=== PATIENT | male | born 1980 | race Caucasian/White ===

== ENCOUNTER → 2020-11-20 09:33 | Outpatient (CLI) | payer OTHER, SELFPAY ==
[2020-11-20] MEDS: COVID-19 VACC #1, MRNA(MOD) 100 MCG/0.5 ML VIAL IM (09:41)
== END ==
PROVIDERS: Visit Provider Internal Medicine
DX: Z23 Encounter for immunization (principal)
CPT/HCPCS: 0011A; 91301

== ENCOUNTER → 2020-12-18 09:10 | Outpatient (CLI) | payer OTHER, SELFPAY ==
[2020-12-18] MEDS: COVID-19 VACC #2, MRNA(MOD) 100 MCG/0.5 ML VIAL IM (09:22)
== END ==
PROVIDERS: Visit Provider Internal Medicine
DX: Z23 Encounter for immunization (principal)
CPT/HCPCS: 0012A; 91301

== ENCOUNTER → 2023-07-07 12:05 | Outpatient (CLI) | payer OTHER, SELFPAY ==
[2023-07-07 12:30] LABS: Add Manual Diff / Slide Review NO; Basophils Absolute Auto 0 /uL (0-100); Basophils Percent Auto 0.6 % (0-2); Eosinophils Absolute Auto 100 /uL (0-450); Hematocrit 41.9 % (41-53); Hemoglobin 14.6 g/dL (13.5-17.5); Lymphocytes Absolute Auto 2400 /uL (1100-4500); Lymphocytes Percent Auto 40.9 % (25-40); Mean Corpuscular HGB Conc 34.9 % (30-36); Mean Corpuscular Hemoglobin 30.8 PG (26-34); Mean Corpuscular Volume 88.1 fL (80-100); Monocytes Absolute Auto 300 /uL (0-900); Monocytes Percent Auto 5.3 % (3-14); Neutrophils Absolute Auto 3100 /uL (1500-7000); Neutrophils Percent Auto 52.2 % (50-75); Platelet Count 281 X10^3/uL (150-400); Red Blood Cell Count 4.76 X10^6/uL (4.5-5.9); Red Cell Distribution Width 12.9 % (11.6-14.8); White Blood Cell Count 5.9 X10^3/uL (4.5-11.0)
[2023-07-07 12:44] LABS: Hemoglobin A1C% w Est Avg Glu 5.4 % (4.0-6.0)
[2023-07-07 13:24] LABS: Alanine Aminotransferase 15 IU/L (<50); Albumin 4.6 g/dL (3.5-5.0); Albumin Globulin Ratio 1.8 (1.0-2.8); Alkaline Phosphatase 59 U/L (38-126); Aspartate Aminotransferase 29 IU/L (17-59); BUN Creatinine Ratio 19.7 (6-22); Bilirubin Total 0.6 mg/dL (0.2-1.3); Blood Urea Nitrogen 14 mg/dL (9-20); Carbon Dioxide 29 mmol/L (22-32); Chloride 100 mmol/L (98-107); Cholesterol 198 mg/dL (140-199); Estimated Glomerular Filt Rate > 60 mL/min (>60); Globulin 2.6 g/dL (1.7-4.1); Glucose 102 mg/dL (70-100); HDL Cholesterol 57 mg/dL (40-60); HEMOLYSIS < 15 (0-50); LDL Cholesterol Calculated 124 mg/dL (<100); Potassium 4.9 mmol/L (3.4-5.1); Sodium 137 mmol/L (137-145); Total Protein 7.2 g/dL (6.3-8.2); Triglycerides 85 mg/dL (35-150)
[2023-07-07 13:54] LABS: Thyroid Stimulating Hormone 0.936 uIU/mL (0.47-4.68)
[2023-07-07 16:47] LABS: HIV 1 & 2 Ab/Ag 4th Gen Combo NEGATIVE (NEGATIVE); Hep C Virus Ab w/Reflex Quant NEGATIVE s/c (NEGATIVE)
== END ==
PROVIDERS: Family Provider Family Medicine; PCP Family Medicine; Referring Provider Family Medicine; Visit Provider Family Medicine
DX: Z00.00 Encounter for general adult medical examination without abnormal findings (principal)
CPT/HCPCS: 36415; 80053; 80061; 83036; 84443; 85025; 86803; 87389

== ENCOUNTER 2023-07-11 10:45 | Outpatient (RCR) | payer OTHER, SELFPAY ==
--- NOTE | 2023-06-30 17:39 | PT.OIE ---
Current Diagnoses Radiculopathy, site unspecified (06/30/23) Visit Care Team Role Provider Type Charlie Arellano MD Family Provider Physician Primary Care Provider Specialty: Family Practice Obstetrics Address: [address] [place] [address], [id number] Email: [email or web address] Sherly Recinos MD Attending Provider Physician Referring Provider Specialty: Family Practice Address: [address] [place] [address] [place], [address] Email: [email or web address] Physical Therapy Initial Evaluation PT-OP-A Visit Information Start: 06/17/23 19:06 Freq: Status: Active Protocol: Document 06/30/23 13:23 LRN (Rec: 06/30/23 16:12 LRN [id number]) Out-Patient Physical Therapy Visit Information Visit Information Visit Type Initial Evaluation Visit Start Time 13:23 Visit Stop Time 14:07 Total Visit Minutes 44 Visit Number Evaluation Information Evaluation Date 06/30/23 Precautions Precautions None PT-OP-B Current Condition Start: 06/17/23 19:06 Freq: Status: Active Protocol: Document 06/30/23 13:23 LRN (Rec: 06/30/23 16:12 LRN [id number]) Current Condition History of Current Condition Onset Date 2 months ago Current Complaints R LBP, R sciatic pain History of Current Condition Mild LBP onset when holding 11 month old son (on L side), he twisted a weird and had pain down his R side. The back issue went away, but later had pain in lateral R knee to ankle. He states the R foot and back of calf feels a little numbish. The pt has 2 sons, ages 11 months and 5 yo. He states he doesn't have to lift the 5 year old. Prior Treatments and Tests manager critical care unit 2x/week. Gabapentin and Meloxicam Future Testing and Treatments Planned manager critical care unit 2x/week. Developmental History Developmental History 10 yrs ago, thinks bad posture caused onset of R LBP, went to get out of bed and feel to ground due to pain; once up was able to walk, but pain returned after sitting. Current onset, back issue went away, but later pain in Lateral R knee to ankle. R foot and back of calf feels a little numbish. Hurts to walk. Works for [employer], so walking flat or incline at work (not up/down stairs) is painful. Treatment Goals Patient/Caregiver Goals Pt goals: to get pain under control: Able to walk on flat and incline without pain, to prepare for skiing, agreeable to HEP. Personal Factors Other Personal Factors That May Effect Works for [employer], Therapy/Recovery requiring walking flat and inclined surfaces. Has 11 month, almost 12 month old son that he carries, mostly on the L side. PT-OP-C Subjective Start: 06/17/23 19:06 Freq: Status: Active Protocol: Document 06/30/23 13:23 LRN (Rec: 06/30/23 16:12 LRN [id number]) Patient Questionnaires Oswestry Low Back Index Oswestry Score 16/100 Oswestry Impairment 1 to 19% Impaired (Score 1-19) OP-PT Pain Assessment Pain Assessment Grid Paper Pain Assessment Grid Completed Yes Location R LE Pain Location Details Posterior, anterior and lateral lower leg, & lateral foot. Intensity 6 Scale Used Numeric (0 - 10) Description Aching,Sharp,Shooting Description- Other Decreased sensation Frequency Constant Pain Aggravating Factors Activity,Standing,Sitting, Walking Low back Pain Location Details R LBP Intensity 6 Scale Used Numeric (0 - 10) Description Aching,Sharp,Shooting Description- Other Initially sharp, radiating, cramps in calf Frequency Constant Pain Aggravating Factors Standing,Walking PT-OP-H Neuro Start: 06/17/23 19:06 Freq: Status: Active Protocol: Document 06/30/23 13:23 LRN (Rec: 06/30/23 16:12 LRN [id number]) Sensation Evaluation Gross Sensation Gross Sensation Right LE Impaired Sensation Description Numbness Dermatome Impairments L3,L4,L5,S1,S2 Deep Tendon Reflex & Clonus Assessment Deep Tendon Reflex Bilateral Achilles Deep Tendon Reflex 2+ Normal Right Patellar Deep Tendon Reflex 3+ Normal But Brisk Left Patellar Deep Tendon Reflex 2+ Normal PT-OP-J Posture/Palpation/Skin Start: 06/17/23 19:06 Freq: Status: Active Protocol: Document 06/30/23 13:23 LRN (Rec: 06/30/23 16:12 LRN [id number]) Posture Evaluation Position Standing Head/C-Spine Posture Side Bent Left,Forward Head L-Spine Posture Decreased Lordosis,Shifted Left Shoulder Posture (L) Elevated Pelvis Posture Posterior Tilted Weight Distribution Balanced Hip Posture (L) Externally Rotated Ankle/Foot Posture (L) Calcaneal Inversion,(R) Calcaneal Inversion Palpation Assessment Location R LE Palpation Location Lower leg posterior, lateral anterior; foot lateral and top . Palpation Details Decreased sensation Low back Palpation Location R low back Palpation Findings Soft Tissue Tightness, Tenderness Palpation Details Bilateral LB tightness PT-OP-K Range of Motion Start: 06/17/23 19:06 Freq: Status: Active Protocol: Document 06/30/23 13:23 LRN (Rec: 06/30/23 16:12 LRN [id number]) Lumbar Spine Range of Motion Lumbar Spine Active Degrees Testing Position Standing Flexion 45 Extension 20 Rotation Left 30 Rotation Right 30 Lateral Flexion Left 20 Lateral Flexion Right 15 Comments Trunk AROM: Flexion is 45 deg ?s with 30 deg?s hip flexion, Trunk extension is 20 deg?s with 20 deg?s hip extension. Hip Goniometric Range of Motion Hip Right Passive Testing Position Supine Straight Leg Raise 55 Internal Rotation 25 External Rotation 55 Left Passive Testing Position Supine Straight Leg Raise 65 Internal Rotation 20 External Rotation 55 PT-OP-L Special Tests Start: 06/17/23 19:06 Freq: Status: Active Protocol: Document 06/30/23 13:23 LRN (Rec: 06/30/23 16:12 LRN [id number]) Special Tests Lumbar Spine Special Tests Manual Traction Test Results negative Straight Leg Raise Test Results Possible + bilaterally Comments PSLR is 55 R, 65 L. Slump Test Results + right Vertical Spine Loading Test Results negative PT-OP-M Strength Start: 06/17/23 19:06 Freq: Status: Active Protocol: Document 06/30/23 13:23 LRN (Rec: 06/30/23 16:12 LRN [id number]) Trunk Strength Trunk Manual Muscle Testing Rotation Left 3+ Fair+ Rotation Right 3+ Fair+ Core Stabilization Lacks core rotational stability with hip flexion. Hip Strength Hip Manual Muscle Testing Right Flexion (L2) 4+ Good+ Abduction 3 Fair External Rotation 4 Good Internal Rotation 3 Fair Comments Strength is 5/5 except as indicated above Left Internal Rotation 4 Good Comments Strength is 5/5 except as indicated above PT-OP-Q Treatments Start: 06/17/23 19:06 Freq: Status: Active Protocol: Document 06/30/23 13:23 LRN (Rec: 06/30/23 16:12 LRN [id number]) Therapeutic Exercises Other Exercises Sit<>stand training Other Exercise Name Hip hinging: NS training for sit<>stand Reps/Minutes 2x Comments Mostly education and verbal cuing for transfer Self-Care/Home Management Treatment Education Other Education Discussed results of evaluation, goals, and plan of care (POC). Pt agreeable to goals and POC. Activities Self-Care/Home Management Activities Neutral spine education in sitting. I/S pt in postural awareness for NS positioning and to do with sit<>stand. PT-OP-T Assessment and Plan Start: 06/17/23 19:06 Freq: Status: Active Protocol: Document 06/30/23 13:23 LRN (Rec: 06/30/23 16:12 LRN [id number]) Physical Therapy Assessment Rehab Potential Rehabilitation Potential Good Evaluation Complexity Number of Personal Factors/Comorbidities 1-2 Number of Body Systems Impaired 4 or More Clinical Presentation at Evaluation Evolving Impairments Impairments Activity Tolerance,Gait,Pain, Posture,ROM,Sensation,Strength ,Transfers Goals Three Impairment Decreased function per CE score of 8/50 Impairment CE score 16/100 = 16% impaired Nibbler Operator Goal (LTG) Decreasse R LB/LE pain to 0/10 with pt able to walk on flat and incline w/o pain. LTG Duration 8wks-08/26/23 Two Impairment Pain rated 6/10 at worst Short Term Goal (STG) Decrease R LBP/RLE pain to 3/ 10 with walking. STG Duration 4 wks-07/29/23 Nibbler Operator Goal (LTG) Normalize sensation in R LE with minimal to no onset of RLB/RLE pain. LTG Duration 8wks-08/26/23 One Impairment Lacks appropriate self care program Short Term Goal (STG) Pt will be educated in log roll transfers, proper body mechanics for ADLs, proper sitting/standing posture. STG Duration 4 wks-07/29/23 Nibbler Operator Goal (LTG) Pt will be independent in an effective self care HEP for core/hip strengthening and mobility ex's to manage his pain and prep for skiing. LTG Duration 8wks-08/26/23 Assessment Summary Assessment Pt presents with L3 through S2 neurological changes and possible disc involvement with + R PSLR and R slump test. He has weakness of R hip flex, AB, ER, & IR (L2-S2) and decreased sensation in the R lower leg and foot (not plantar surface). The pt has improved since time of injury as he has been being seen by a chiropractor and with use of medications. The pt will benefit from skilled physical therapy to work towards achieving the above stated goals. Helping care for his son (carrying son) and working on the [employer] may hinder his progress, resulting in extension of his rehab program. Physical Therapy Plan Frequency and Duration Frequency of Treatment 2x/Week Duration of treatment (weeks) 8 Plan of Care Start Date 06/30/23 Plan of Care End Date 08/26/23 Therapeutic Interventions Therapeutic Interventions Gait Training,Home Exercise Program,Joint Mobilizations, Manual Therapy,Neuromuscular Re-education,Self-Care/Home Management,Soft Tissue Mobilization,Taping, Therapeutic Activities, Therapeutic Exercises Modalities Cold Pack/Ice Massage,Electric Stimulation,Hot Packs Next Visit Focus/Plan Next Note Type Treatment Note Next Visit Plan Assess for R SIJ dysfunction and need for sacral balancing. Education: log roll transfers , proper body mechanics for ADLs, proper sitting/standing posture. Manual: Sacral mob/sacral balancing, mob of L3-S2, STM of R LB/hips/RLE/R foot, K- tape Gait/Posture training Self care: pain management & HEP, ski prep exercises. Modalities for pain management MH/IFES-[L/S and sacral region].
--- NOTE | 2023-06-30 17:39 | PT.OPPOC ---
Physical, Occupational & Speech Therapy At [facility] Current Diagnoses Radiculopathy, site unspecified (06/30/23) Visit Care Team Role Provider Type Charlie Arellano MD Family Provider Physician Primary Care Provider Specialty: Family Practice Obstetrics Address: [address] [place] [address] [place], [address] Email: [email or web address] Sherly Recinos MD Attending Provider Physician Referring Provider Specialty: Family Practice Address: [address] [place] [address], [place], [address] Email: [email or web address] Plan Of Care PT-OP-T Assessment and Plan Start: 06/17/23 19:06 Freq: Status: Active Protocol: Document 06/30/23 13:23 LRN (Rec: 06/30/23 16:12 LRN [id number]) Physical Therapy Assessment Rehab Potential Rehabilitation Potential Good Evaluation Complexity Number of Personal Factors/Comorbidities 1-2 Number of Body Systems Impaired 4 or More Clinical Presentation at Evaluation Evolving Impairments Impairments Activity Tolerance,Gait,Pain, Posture,ROM,Sensation,Strength ,Transfers Goals Three Impairment Decreased function per CE score of 8/50 Impairment CE score 16/100 = 16% impaired Roofing Machine Operator Goal (LTG) Decreasse R LB/LE pain to 0/10 with pt able to walk on flat and incline w/o pain. LTG Duration 8wks-08/26/23 Two Impairment Pain rated 6/10 at worst Short Term Goal (STG) Decrease R LBP/RLE pain to 3/ 10 with walking. STG Duration 4 wks-07/29/23 [facility] Goal (LTG) Normalize sensation in R LE with minimal to no onset of RLB/RLE pain. LTG Duration 8wks-08/26/23 One Impairment Lacks appropriate self care program Short Term Goal (STG) Pt will be educated in log roll transfers, proper body mechanics for ADLs, proper sitting/standing posture. STG Duration 4 wks-07/29/23 Roofing Machine Operator Goal (LTG) Pt will be independent in an effective self care HEP for core/hip strengthening and mobility ex's to manage his pain and prep for skiing. LTG Duration 8wks-08/26/23 Assessment Summary Assessment Pt presents with L3 through S2 neurological changes and possible disc involvement with + R PSLR and R slump test. He has weakness of R hip flex, AB, ER, & IR (L2-S2) and decreased sensation in the R lower leg and foot (not plantar surface). The pt has improved since time of injury as he has been being seen by a chiropractor and with use of medications. The pt will benefit from skilled physical therapy to work towards achieving the above stated goals. Helping care for his son (carrying son) and working on the [employer] may hinder his progress, resulting in extension of his rehab program. Physical Therapy Plan Frequency and Duration Frequency of Treatment 2x/Week Duration of treatment (weeks) 8 Plan of Care Start Date 06/30/23 Plan of Care End Date 08/26/23 Therapeutic Interventions Therapeutic Interventions Gait Training,Home Exercise Program,Joint Mobilizations, Manual Therapy,Neuromuscular Re-education,Self-Care/Home Management,Soft Tissue Mobilization,Taping, Therapeutic Activities, Therapeutic Exercises Modalities Cold Pack/Ice Massage,Electric Stimulation,Hot Packs Next Visit Focus/Plan Next Note Type Treatment Note Next Visit Plan Assess for R SIJ dysfunction and need for sacral balancing. Education: log roll transfers , proper body mechanics for ADLs, proper sitting/standing posture. Manual: Sacral mob/sacral balancing, mob of L3-S2, STM of R LB/hips/RLE/R foot, K- tape Gait/Posture training Self care: pain management & HEP, ski prep exercises. Modalities for pain management MH/IFES-[L/S and sacral region]. Plan of Care Dates Plan of Care Start Date 06/30/23 Plan of Care End Date 08/26/23 Electronically Signed by: Tanya Simms, PT 06/30/23 [id number] If you are in agreement with this Plan of Care, please return a signed and dated copy. I have reviewed this Plan of Care and certify that the skilled therapy services above are required to meet the patient?s needs. Physician Signature Date Printed Name and Credentials Clinical Instructor Signature Printed Name and Credentials
--- NOTE | 2023-07-04 11:30 | PT.OTN ---
Current Diagnoses Radiculopathy, site unspecified (07/04/23) Physical Therapy Treatment Note PT-OP-A Visit Information Start: 06/17/23 19:06 Freq: Status: Active Protocol: Document 07/04/23 10:49 SP (Rec: 07/04/23 11:46 SP [id number]) Out-Patient Physical Therapy Visit Information Visit Information Visit Type Treatment Note Visit Start Time 10:49 Visit Stop Time 11:30 Total Visit Minutes 41 Visit Number 2/60 Number of SAMPLE CHECKER Visits 1 Evaluation Information Evaluation Date 06/30/23 Precautions Precautions None PT-OP-B Current Condition Start: 06/17/23 19:06 Freq: Status: Active Protocol: Document 06/30/23 13:23 LRN (Rec: 06/30/23 16:12 LRN [id number]) Current Condition History of Current Condition Onset Date 2 months ago Current Complaints R LBP, R sciatic pain History of Current Condition Mild LBP onset when holding 11 month old son (on L side), he twisted a weird and had pain down his R side. The back issue went away, but later had pain in lateral R knee to ankle. He states the R foot and back of calf feels a little numbish. The pt has 2 sons, ages 11 months and 5 yo. He states he doesn't have to lift the 5 year old. 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 Gabapentin and Meloxicam Future Testing and Treatments Planned director of healthcare systems 2x/week. Developmental History Developmental History 10 yrs ago, thinks bad posture caused onset of R LBP, went to get out of bed and feel to ground due to pain; once up was able to walk, but pain returned after sitting. Current onset, back issue went away, but later pain in Lateral R knee to ankle. R foot and back of calf feels a little numbish. Hurts to walk. Works for [employer], so walking flat or incline at work (not up/down stairs) is painful. Treatment Goals Patient/Caregiver Goals Pt goals: to get pain under control: Able to walk on flat and incline without pain, to prepare for skiing, agreeable to HEP. Personal Factors Other Personal Factors That May Effect Works for [employer], Therapy/Recovery requiring walking flat and inclined surfaces. Has 11 month, almost 12 month old son that he carries, mostly on the L side. PT-OP-C Subjective Start: 06/17/23 19:06 Freq: Status: Active Protocol: Document 07/04/23 10:49 SP (Rec: 07/04/23 11:46 SP [id number]) OP-PT Subjective Patient Comments Patient Comments Pt reports his back was sore after last tx and went into L side as well. He reports pain down back R>L into HS but now less pain but more annoyance. [place] to walk with upright spinal alignment and chairs are not very supportive to sit on so does best can on moving boat. PT-OP-H Neuro Start: 06/17/23 19:06 Freq: Status: Active Protocol: Document 06/30/23 13:23 LRN (Rec: 06/30/23 16:12 LRN [id number]) Sensation Evaluation Gross Sensation Gross Sensation Right LE Impaired Sensation Description Numbness Dermatome Impairments L3,L4,L5,S1,S2 Deep Tendon Reflex & Clonus Assessment Deep Tendon Reflex Bilateral Achilles Deep Tendon Reflex 2+ Normal Right Patellar Deep Tendon Reflex 3+ Normal But Brisk Left Patellar Deep Tendon Reflex 2+ Normal PT-OP-J Posture/Palpation/Skin Start: 06/17/23 19:06 Freq: Status: Active Protocol: Document 06/30/23 13:23 LRN (Rec: 06/30/23 16:12 LRN [id number]) Posture Evaluation Position Standing Head/C-Spine Posture Side Bent Left,Forward Head L-Spine Posture Decreased Lordosis,Shifted Left Shoulder Posture (L) Elevated Pelvis Posture Posterior Tilted Weight Distribution Balanced Hip Posture (L) Externally Rotated Ankle/Foot Posture (L) Calcaneal Inversion,(R) Calcaneal Inversion Palpation Assessment Location R LE Palpation Location Lower leg posterior, lateral anterior; foot lateral and top . Palpation Details Decreased sensation Low back Palpation Location R low back Palpation Findings Soft Tissue Tightness, Tenderness Palpation Details Bilateral LB tightness PT-OP-K Range of Motion Start: 06/17/23 19:06 Freq: Status: Active Protocol: Document 06/30/23 13:23 LRN (Rec: 06/30/23 16:12 LRN [id number]) Lumbar Spine Range of Motion Lumbar Spine Active Degrees Testing Position Standing Flexion 45 Extension 20 Rotation Left 30 Rotation Right 30 Lateral Flexion Left 20 Lateral Flexion Right 15 Comments Trunk AROM: Flexion is 45 deg ?s with 30 deg?s hip flexion, Trunk extension is 20 deg?s with 20 deg?s hip extension. Hip Goniometric Range of Motion Hip Right Passive Testing Position Supine Straight Leg Raise 55 Internal Rotation 25 External Rotation 55 Left Passive Testing Position Supine Straight Leg Raise 65 Internal Rotation 20 External Rotation 55 PT-OP-L Special Tests Start: 06/17/23 19:06 Freq: Status: Active Protocol: Document 06/30/23 13:23 LRN (Rec: 06/30/23 16:12 LRN [id number]) Special Tests Lumbar Spine Special Tests Manual Traction Test Results negative Straight Leg Raise Test Results Possible + bilaterally Comments PSLR is 55 R, 65 L. Slump Test Results + right Vertical Spine Loading Test Results negative PT-OP-M Strength Start: 06/17/23 19:06 Freq: Status: Active Protocol: Document 06/30/23 13:23 LRN (Rec: 06/30/23 16:12 LRN [id number]) Trunk Strength Trunk Manual Muscle Testing Rotation Left 3+ Fair+ Rotation Right 3+ Fair+ Core Stabilization Lacks core rotational stability with hip flexion. Hip Strength Hip Manual Muscle Testing Right Flexion (L2) 4+ Good+ Abduction 3 Fair External Rotation 4 Good Internal Rotation 3 Fair Comments Strength is 5/5 except as indicated above Left Internal Rotation 4 Good Comments Strength is 5/5 except as indicated above PT-OP-Q Treatments Start: 06/17/23 19:06 Freq: Status: Active Protocol: Document 07/04/23 10:49 SP (Rec: 07/04/23 11:46 SP [id number]) Therapeutic Exercises Supine Exercises TA heel Supine Exercise Name TA training good, added alternating heel side- HEP Reps/Minutes 5 reps x2 Comments good feedback painfree Piriformis stretch Supine Exercise Name supine- DC Side right Resistance opposite LE straight Reps/Minutes 30 S H Comments pain lateral leg into lateral calf FIg 4 Supine Exercise Name trialed in PT Side bilateral Reps/Minutes 60SH Comments good response stretch response LE neural glide Supine Exercise Name DF & IV ankle ROM- reviewed self HEP - instructed to continue Side bilateral Resistance R>L Equipment Used supine and seated Reps/Minutes 20 AP Comments painfree, just HS stretching SKTC Supine Exercise Name review self HEP Side bilateral Resistance R>L Reps/Minutes 30SH Comments good response painfree Sitting Exercises hip stretch Sitting Exercise Name 1. piriformis (IR) 2. Fig 4 ER 3. HS Reps/Minutes 20SH Comments good feedback response painfree Other Exercises Sit<>stand training Other Exercise Name Hip hinging: NS training for sit<>stand- added to HEP Equipment Used 18 table Reps/Minutes x8 reps Comments cued TA/NS- no pain ascend/ descend Manual Therapy Treatment Soft Tissue Mobilization L hip Body Location glut med, piriformis Mobilization Type Strumming,Sustained Pressure, Other Body Position Sidelying Comments manual strumming and sustained pressure with active clamshell. ed use ball wall- has used end foam roller in past and found helped hip feel better for few hrs. Self-Care/Home Management Treatment Education Other Education Initiated LB and hip flexibility, provided HOs for home performance but most review of what he has done in his passed that seemed to help . HEP: TA draw in, TA HS, LE neural glide w/ankle IV supine and sit for [place]. Improved understanding use of ball on wall glut and ES if needed during manual STMs and MWM clamshell. Discussed use of pillows for spinal support- continue next tx. PT-OP-T Assessment and Plan Start: 06/17/23 19:06 Freq: Status: Active Protocol: Document 07/04/23 10:49 SP (Rec: 07/04/23 11:46 SP [id number]) Physical Therapy Assessment Goals Three Impairment Decreased function per CE score of 8/50 Impairment CE score 16/100 = 16% impaired Snf Goal (LTG) Decreasse R LB/LE pain to 0/10 with pt able to walk on flat and incline w/o pain. LTG Duration 8wks-08/26/23 Two Impairment Pain rated 6/10 at worst Short Term Goal (STG) Decrease R LBP/RLE pain to 3/ 10 with walking. STG Duration 4 wks-07/29/23 Snf Goal (LTG) Normalize sensation in R LE with minimal to no onset of RLB/RLE pain. LTG Duration 8wks-08/26/23 One Impairment Lacks appropriate self care program Short Term Goal (STG) Pt will be educated in log roll transfers, proper body mechanics for ADLs, proper sitting/standing posture. 07/04/23: Discussed elevated posture, TA engagement hip hinge sit and stand for spinal alignment, added as HEP. 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 07/04/23: TA HS, LE neural glide w/ ankle AP&IV, piriformis stretch, TA STS. Aware self STMs ball wall if needed (used foam roller in past). LTG Duration 8wks-08/26/23 progressing Assessment Summary Assessment Pt responded well to manual. Reports sensation into L calf during supine piriformis stretch so DC good stretch nonsymtomatic seated. Focused on flexibility and TA trng with painfree reports. Pt improved spinal alignment during STS end tx. Discussed spinal alignment best can while in break room (low ceiling) and use ferry passenger seated periodically to increase mobility L hip/LS with HEP. Physical Therapy Plan Frequency and Duration Frequency of Treatment 2x/Week Duration of treatment (weeks) 8 Plan of Care Start Date 06/30/23 Plan of Care End Date 08/26/23 Therapeutic Interventions Therapeutic Interventions Gait Training,Home Exercise Program,Joint Mobilizations, Manual Therapy,Neuromuscular Re-education,Self-Care/Home Management,Soft Tissue Mobilization,Taping, Therapeutic Activities, Therapeutic Exercises Modalities Cold Pack/Ice Massage,Electric Stimulation,Hot Packs Next Visit Focus/Plan Next Note Type Treatment Note Next Visit Plan Recheck stretching& LE neural glide HEP. Continue body mechanics with ADLs and work on ferry boat and pillow support /positional sleeping. Trial prone Jabari, has had relief in his past. Assess for R SIJ dysfunction and need for sacral balancing. Education: log roll transfers , proper body mechanics for ADLs, proper sitting/standing posture. Manual: Sacral mob/sacral balancing, mob of L3-S2, STM of R LB/hips/RLE/R foot, K- tape Gait/Posture training Self care: pain management & HEP, ski prep exercises. Modalities for pain management MH/IFES-[L/S and sacral region].
--- NOTE | 2023-07-07 14:55 | PT.OTN ---
Current Diagnoses Radiculopathy, site unspecified (07/07/23) Physical Therapy Treatment Note PT-OP-A Visit Information Start: 06/17/23 19:06 Freq: Status: Active Protocol: Document 07/07/23 14:06 LRN (Rec: 07/07/23 14:53 LRN [id number]) Out-Patient Physical Therapy Visit Information Visit Information Visit Type Treatment Note Visit Start Time 14:06 Visit Stop Time 14:45 Total Visit Minutes 39 Visit Number 360 Evaluation Information Evaluation Date 06/30/23 Precautions Precautions None PT-OP-B Current Condition Start: 06/17/23 19:06 Freq: Status: Active Protocol: Document 06/30/23 13:23 LRN (Rec: 06/30/23 16:12 LRN [id number]) Current Condition History of Current Condition Onset Date 2 months ago Current Complaints R LBP, R sciatic pain History of Current Condition Mild LBP onset when holding 11 month old son (on L side), he twisted a weird and had pain down his R side. The back issue went away, but later had pain in lateral R knee to ankle. He states the R foot and back of calf feels a little numbish. The pt has 2 sons, ages 11 months and 5 yo. He states he doesn't have to lift the 5 year old. 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 Gabapentin and Meloxicam Future Testing and Treatments Planned urgent care physician assistant 2x/week. Developmental History Developmental History 10 yrs ago, thinks bad posture caused onset of R LBP, went to get out of bed and feel to ground due to pain; once up was able to walk, but pain returned after sitting. Current onset, back issue went away, but later pain in Lateral R knee to ankle. R foot and back of calf feels a little numbish. Hurts to walk. Works for [employer], so walking flat or incline at work (not up/down stairs) is painful. Treatment Goals Patient/Caregiver Goals Pt goals: to get pain under control: Able to walk on flat and incline without pain, to prepare for skiing, agreeable to HEP. Personal Factors Other Personal Factors That May Effect Works for [employer], Therapy/Recovery requiring walking flat and inclined surfaces. Has 11 month, almost 12 month old son that he carries, mostly on the L side. PT-OP-C Subjective Start: 06/17/23 19:06 Freq: Status: Active Protocol: Document 07/07/23 14:06 LRN (Rec: 07/07/23 14:53 LRN [id number]) OP-PT Subjective Patient Comments Patient Comments States less pain and walking more normal, not on side of R feet (L foot has been normal). PT-OP-H Neuro Start: 06/17/23 19:06 Freq: Status: Active Protocol: Document 06/30/23 13:23 LRN (Rec: 06/30/23 16:12 LRN [id number]) Sensation Evaluation Gross Sensation Gross Sensation Right LE Impaired Sensation Description Numbness Dermatome Impairments L3,L4,L5,S1,S2 Deep Tendon Reflex & Clonus Assessment Deep Tendon Reflex Bilateral Achilles Deep Tendon Reflex 2+ Normal Right Patellar Deep Tendon Reflex 3+ Normal But Brisk Left Patellar Deep Tendon Reflex 2+ Normal PT-OP-J Posture/Palpation/Skin Start: 06/17/23 19:06 Freq: Status: Active Protocol: Document 06/30/23 13:23 LRN (Rec: 06/30/23 16:12 LRN [id number]) Posture Evaluation Position Standing Head/C-Spine Posture Side Bent Left,Forward Head L-Spine Posture Decreased Lordosis,Shifted Left Shoulder Posture (L) Elevated Pelvis Posture Posterior Tilted Weight Distribution Balanced Hip Posture (L) Externally Rotated Ankle/Foot Posture (L) Calcaneal Inversion,(R) Calcaneal Inversion Palpation Assessment Location R LE Palpation Location Lower leg posterior, lateral anterior; foot lateral and top . Palpation Details Decreased sensation Low back Palpation Location R low back Palpation Findings Soft Tissue Tightness, Tenderness Palpation Details Bilateral LB tightness PT-OP-K Range of Motion Start: 06/17/23 19:06 Freq: Status: Active Protocol: Document 06/30/23 13:23 LRN (Rec: 06/30/23 16:12 LRN [id number]) Lumbar Spine Range of Motion Lumbar Spine Active Degrees Testing Position Standing Flexion 45 Extension 20 Rotation Left 30 Rotation Right 30 Lateral Flexion Left 20 Lateral Flexion Right 15 Comments Trunk AROM: Flexion is 45 deg ?s with 30 deg?s hip flexion, Trunk extension is 20 deg?s with 20 deg?s hip extension. Hip Goniometric Range of Motion Hip Right Passive Testing Position Supine Straight Leg Raise 55 Internal Rotation 25 External Rotation 55 Left Passive Testing Position Supine Straight Leg Raise 65 Internal Rotation 20 External Rotation 55 PT-OP-L Special Tests Start: 06/17/23 19:06 Freq: Status: Active Protocol: Document 06/30/23 13:23 LRN (Rec: 06/30/23 16:12 LRN [id number]) Special Tests Lumbar Spine Special Tests Manual Traction Test Results negative Straight Leg Raise Test Results Possible + bilaterally Comments PSLR is 55 R, 65 L. Slump Test Results + right Vertical Spine Loading Test Results negative PT-OP-M Strength Start: 06/17/23 19:06 Freq: Status: Active Protocol: Document 06/30/23 13:23 LRN (Rec: 06/30/23 16:12 LRN [id number]) Trunk Strength Trunk Manual Muscle Testing Rotation Left 3+ Fair+ Rotation Right 3+ Fair+ Core Stabilization Lacks core rotational stability with hip flexion. Hip Strength Hip Manual Muscle Testing Right Flexion (L2) 4+ Good+ Abduction 3 Fair External Rotation 4 Good Internal Rotation 3 Fair Comments Strength is 5/5 except as indicated above Left Internal Rotation 4 Good Comments Strength is 5/5 except as indicated above PT-OP-Q Treatments Start: 06/17/23 19:06 Freq: Status: Active Protocol: Document 07/07/23 14:06 LRN (Rec: 07/07/23 14:53 LRN [id number]) Therapeutic Exercises Supine Exercises Lateral Hip stretch Supine Exercise Name Lateral Hip stretch Side right Reps/Minutes 10 SH x 6 Comments Cuing to not stretch into discomfort Hamstring stretch Side right TA heel Supine Exercise Name TA training good, added alternating heel side- HEP Reps/Minutes 10 reps x2 Comments good feedback painfree Piriformis stretch Supine Exercise Name Piriformis stretch (ankle over opp knee - pull to opp shdr) Side right Resistance opposite LE straight Reps/Minutes 10 SH x 6 Comments denies having any pain. Cued to not stretch into discomfort FIg 4 Supine Exercise Name Fig 4 stretch Side right Reps/Minutes 60SH Comments good response stretch response LE neural glide Supine Exercise Name L side Kick the head off; R side kick the head Side bilateral Resistance R>L Equipment Used seated Reps/Minutes 10x each Comments painfree SKTC Supine Exercise Name SKTC stretch Side bilateral Resistance R>L Reps/Minutes 30SH x 2 with extra set on R side. Comments good response painfree Other Exercises Sit<>stand training Other Exercise Name Hip hinging: NS training for sit<>stand- added to HEP Equipment Used 18 table Reps/Minutes x8 reps Comments cued TA/NS- no pain ascend/ descend Self-Care/Home Management Treatment Education Patient Education Posture Other Education Pt educated in sleeping posture for sidelie with pillow between knees. Pt educated and discussed proper sitting/standing posture, Postures to protect the back (postures that increase back strain), proper transfers and body mechanics for ADLS. Activities Self-Care/Home Management Activities Issued & reviewed handouts for LOg roll transfer, proper posture for ADLs and sit/ standing posture, and for Proper Posture: Marsh to Safe Movement. PT-OP-T Assessment and Plan Start: 06/17/23 19:06 Freq: Status: Active Protocol: Document 07/07/23 14:06 LRN (Rec: 07/07/23 14:53 LRN [id number]) Physical Therapy Assessment Goals Three Impairment Decreased function per CE score of 8/50 Impairment CE score 16/100 = 16% impaired Tray Service Worker Goal (LTG) Decrease R LB/LE pain to 0/10 with pt able to walk on flat and incline w/o pain. 07/07/23: Pain rated 4-5/10 LTG Duration 8wks-08/26/23 progressing Two Impairment Pain rated 6/10 at worst Short Term Goal (STG) Decrease R LBP/RLE pain to 3/ 10 with walking. 06/06/23: Pain rated 5/10, ending treatment with pain 4/ 10. STG Duration 4 wks-07/29/23 progressing 07/07/23 Tray Service Worker Goal (LTG) Normalize sensation in R LE with minimal to no onset of RLB/RLE pain. LTG Duration 8wks-08/26/23 One Impairment Lacks appropriate self care program Short Term Goal (STG) Pt will be educated in log roll transfers, proper body mechanics for ADLs, proper sitting/standing posture. 07/04/23: Discussed elevated posture, TA engagement hip hinge sit and stand for spinal alignment, added as HEP. 07/07/23: Educated pt in log roll transfers, proper body mechanics for ADLs, proper sitting/standing posture. STG Duration 4 wks-07/29/23 (07/07/23: MET GOAL) Alf Goal (LTG) Pt will be independent in an effective self care HEP for core/hip strengthening and mobility ex's to manage his pain and prep for skiing. 07/04/23: TA HS, LE neural glide w/ ankle AP&IV, piriformis stretch, TA STS. Aware self STMs ball wall if needed (used foam roller in past). LTG Duration 8wks-08/26/23 progressing Assessment Summary Assessment Pt required directions and cuing to perform ex's, pt not familiar; therefore pt needs to do daily and if possible 2x /day. No pain with hip stretches and pain decreasing. Pt needs stabilization of pelvis/core. Pt interested in starting gym workouts, but needs assessment and training for posture and mechanics with exericse. Physical Therapy Plan Frequency and Duration Frequency of Treatment 2x/Week Duration of treatment (weeks) 8 Plan of Care Start Date 06/30/23 Plan of Care End Date 08/26/23 Next Visit Focus/Plan Next Note Type Treatment Note Next Visit Plan NEXT: Educate pt in proper posture for gym ex and trial gym equip for pt to return to gym ex's. Trial prone Jabari, has had relief in his past. Assess for R SIJ dysfunction and need for sacral balancing. Progress for core/pelvic stabilization. Manual: Sacral mob/sacral balancing, mob of L3-S2, STM of R LB/hips/RLE/R foot, K- tape Gait/Posture training Self care: pain management & HEP, ski prep exercises. Modalities for pain management MH/IFES-[L/S and sacral region].
--- NOTE | 2023-07-11 11:33 | PT.OTN ---
Current Diagnoses Radiculopathy, site unspecified (07/11/23) Physical Therapy Treatment Note PT-OP-A Visit Information Start: 06/17/23 19:06 Freq: Status: Active Protocol: Document 07/11/23 10:54 SP (Rec: 07/11/23 11:43 SP [id number]) Out-Patient Physical Therapy Visit Information Visit Information Visit Type Treatment Note Visit Start Time 10:54 Visit Stop Time 11:33 Total Visit Minutes 39 Visit Number 4/60 Number of VICE PRESIDENT OF FINANCE Visits 1 Evaluation Information Evaluation Date 06/30/23 Precautions Precautions None PT-OP-B Current Condition Start: 06/17/23 19:06 Freq: Status: Active Protocol: Document 06/30/23 13:23 LRN (Rec: 06/30/23 16:12 LRN [id number]) Current Condition History of Current Condition Onset Date 2 months ago Current Complaints R LBP, R sciatic pain History of Current Condition Mild LBP onset when holding 11 month old son (on L side), he twisted a weird and had pain down his R side. The back issue went away, but later had pain in lateral R knee to ankle. He states the R foot and back of calf feels a little numbish. The pt has 2 sons, ages 11 months and 5 yo. He states he doesn't have to lift the 5 year old. Prior Treatments and Tests wild animal caretaker 2x/week. Gabapentin and Meloxicam Future Testing and Treatments Planned wild animal caretaker 2x/week. Developmental History Developmental History 10 yrs ago, thinks bad posture caused onset of R LBP, went to get out of bed and feel to ground due to pain; once up was able to walk, but pain returned after sitting. Current onset, back issue went away, but later pain in Lateral R knee to ankle. R foot and back of calf feels a little numbish. Hurts to walk. Works for [employer], so walking flat or incline at work (not up/down stairs) is painful. Treatment Goals Patient/Caregiver Goals Pt goals: to get pain under control: Able to walk on flat and incline without pain, to prepare for skiing, agreeable to HEP. Personal Factors Other Personal Factors That May Effect Works for [employer], Therapy/Recovery requiring walking flat and inclined surfaces. Has 11 month, almost 12 month old son that he carries, mostly on the L side. PT-OP-C Subjective Start: 06/17/23 19:06 Freq: Status: Active Protocol: Document 07/11/23 10:54 SP (Rec: 07/11/23 11:43 SP [id number]) OP-PT Subjective Patient Comments Patient Comments Pt reports pain almost gone, has been able to stopped taking Gabapentin and Maloxincan. Compliant with HEP and wants to work back into gym ex, does attend [facility] [employer] [facility] with family but not wts yet. PT-OP-H Neuro Start: 06/17/23 19:06 Freq: Status: Active Protocol: Document 06/30/23 13:23 LRN (Rec: 06/30/23 16:12 LRN [id number]) Sensation Evaluation Gross Sensation Gross Sensation Right LE Impaired Sensation Description Numbness Dermatome Impairments L3,L4,L5,S1,S2 Deep Tendon Reflex & Clonus Assessment Deep Tendon Reflex Bilateral Achilles Deep Tendon Reflex 2+ Normal Right Patellar Deep Tendon Reflex 3+ Normal But Brisk Left Patellar Deep Tendon Reflex 2+ Normal PT-OP-J Posture/Palpation/Skin Start: 06/17/23 19:06 Freq: Status: Active Protocol: Document 06/30/23 13:23 LRN (Rec: 06/30/23 16:12 LRN [id number]) Posture Evaluation Position Standing Head/C-Spine Posture Side Bent Left,Forward Head L-Spine Posture Decreased Lordosis,Shifted Left Shoulder Posture (L) Elevated Pelvis Posture Posterior Tilted Weight Distribution Balanced Hip Posture (L) Externally Rotated Ankle/Foot Posture (L) Calcaneal Inversion,(R) Calcaneal Inversion Palpation Assessment Location R LE Palpation Location Lower leg posterior, lateral anterior; foot lateral and top . Palpation Details Decreased sensation Low back Palpation Location R low back Palpation Findings Soft Tissue Tightness, Tenderness Palpation Details Bilateral LB tightness PT-OP-K Range of Motion Start: 06/17/23 19:06 Freq: Status: Active Protocol: Document 06/30/23 13:23 LRN (Rec: 06/30/23 16:12 LRN [id number]) Lumbar Spine Range of Motion Lumbar Spine Active Degrees Testing Position Standing Flexion 45 Extension 20 Rotation Left 30 Rotation Right 30 Lateral Flexion Left 20 Lateral Flexion Right 15 Comments Trunk AROM: Flexion is 45 deg ?s with 30 deg?s hip flexion, Trunk extension is 20 deg?s with 20 deg?s hip extension. Hip Goniometric Range of Motion Hip Right Passive Testing Position Supine Straight Leg Raise 55 Internal Rotation 25 External Rotation 55 Left Passive Testing Position Supine Straight Leg Raise 65 Internal Rotation 20 External Rotation 55 PT-OP-L Special Tests Start: 06/17/23 19:06 Freq: Status: Active Protocol: Document 06/30/23 13:23 LRN (Rec: 06/30/23 16:12 LRN [id number]) Special Tests Lumbar Spine Special Tests Manual Traction Test Results negative Straight Leg Raise Test Results Possible + bilaterally Comments PSLR is 55 R, 65 L. Slump Test Results + right Vertical Spine Loading Test Results negative PT-OP-M Strength Start: 06/17/23 19:06 Freq: Status: Active Protocol: Document 06/30/23 13:23 LRN (Rec: 06/30/23 16:12 LRN [id number]) Trunk Strength Trunk Manual Muscle Testing Rotation Left 3+ Fair+ Rotation Right 3+ Fair+ Core Stabilization Lacks core rotational stability with hip flexion. Hip Strength Hip Manual Muscle Testing Right Flexion (L2) 4+ Good+ Abduction 3 Fair External Rotation 4 Good Internal Rotation 3 Fair Comments Strength is 5/5 except as indicated above Left Internal Rotation 4 Good Comments Strength is 5/5 except as indicated above PT-OP-Q Treatments Start: 06/17/23 19:06 Freq: Status: Active Protocol: Document 07/11/23 10:54 SP (Rec: 07/11/23 11:43 SP [id number]) Cardio Equipment Elliptical Duration (Minutes) 5 Resistance 6 Other UEs&LEs Gym Equipment Cable Column (Body Solid) Leg Curl Details good form, alignment & self angle machine Resistance 40# Reps/Time x15 (2 hole behind back rest) Leg ext Details good form, alignment & self angle machine Resistance 40# Reps/Time x15 Rows Details good form/alignment- painfree Resistance 30# Reps/Time x15 pull down Details good form/alignment- painfree Resistance 30# Reps/Time x15 reps Shuttle Recovery Unilateral squat Details occasional cue for knee alignment Resistance 37# (new band) Reps/Time x15 each LE Bilateral squat Details cued knee with mid foot, ROM 90 deg hip/knee flex (not blocked) Resistance 75# (3 new bands0 Reps/Time x15 Therapeutic Exercises Standing Exercises lift Standing Exercise Name 1. hover hip hinge squat to chair 2. deadlift Resistance 1. squat tap 2. dowel 5# leg wt Equipment Used TB #4 blue Reps/Minutes x10 each Comments good form Other Exercises 1/2 kneel chop Other Exercise Name added to HEP: good painfree response Side bilateral Resistance TB #4 blue Equipment Used bottom knee on folded yoga mat Reps/Minutes x10 Comments cued rotate over opp front knee and ecc rot return anchor 'd shld. Sit<>stand training Other Exercise Name Hip hinging: NS training STS and eccentric sit taps- reviewed HEP Equipment Used 18 table Reps/Minutes x8 reps Comments Good NS/TA, painfree asc/desc PT-OP-T Assessment and Plan Start: 06/17/23 19:06 Freq: Status: Active Protocol: Document 07/11/23 10:54 SP (Rec: 07/11/23 11:43 SP [id number]) Physical Therapy Assessment Goals Three Impairment Decreased function per CE score of 8/50 Impairment CE score 16/100 = 16% impaired Care Home Goal (LTG) Decrease R LB/LE pain to 0/10 with pt able to walk on flat and incline w/o pain. 07/07/23: Pain rated 4-5/10 LTG Duration 8wks-08/26/23 progressing Two Impairment Pain rated 6/10 at worst Short Term Goal (STG) Decrease R LBP/RLE pain to 3/ 10 with walking. 06/06/23: Pain rated 5/10, ending treatment with pain 4/ 10. 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 LTG Duration 8wks-08/26/23 One Impairment Lacks appropriate self care program Short Term Goal (STG) Pt will be educated in log roll transfers, proper body mechanics for ADLs, proper sitting/standing posture. 07/04/23: Discussed elevated posture, TA engagement hip hinge sit and stand for spinal alignment, added as HEP. 07/07/23: Educated pt in log roll transfers, proper body mechanics for ADLs, proper sitting/standing posture. STG Duration 4 wks-07/29/23 (07/07/23: MET GOAL) Care Home Goal (LTG) Pt will be independent in an effective self care HEP for core/hip strengthening and mobility ex's to manage his pain and prep for skiing. 07/04/23: TA HS, LE neural glide w/ ankle AP&IV, piriformis stretch, TA STS. Aware self STMs ball wall if needed (used foam roller in past). 07/11/23: progressing: added 1/ 2 knee chop, reviewed cable gym program UE/LEs and ET painfree. LTG Duration 8wks-08/26/23 progressing 07/11 Assessment Summary Assessment Pt improved NS&TA throughout ther ex. Good feedback painfree with good alignment/ form with ET and cable gym equipment. Occasional cue for hip hinge little more hover chair assimulate pre deadlift. Good form and painfree lift to knee height. Initiated 1/2 kneel chops for oblique strengthening and back alignment form for spinal stabilization while picking up his children and return to gym program. Physical Therapy Plan Frequency and Duration Frequency of Treatment 2x/Week Duration of treatment (weeks) 8 Plan of Care Start Date 06/30/23 Plan of Care End Date 08/26/23 Therapeutic Interventions Therapeutic Interventions Gait Training,Home Exercise Program,Joint Mobilizations, Manual Therapy,Neuromuscular Re-education,Self-Care/Home Management,Soft Tissue Mobilization,Taping, Therapeutic Activities, Therapeutic Exercises Modalities Cold Pack/Ice Massage,Electric Stimulation,Hot Packs Next Visit Focus/Plan Next Note Type Treatment Note Next Visit Plan Ask response gym ther ex last tx, trial plank elbow/knees next or future tx. POC: Trial prone Jabari, has had relief in his past. Assess for R SIJ dysfunction and need for sacral balancing. Progress for core/pelvic stabilization. Manual: Sacral mob/sacral balancing, mob of L3-S2, STM of R LB/hips/RLE/R foot, K- tape Gait/Posture training Self care: pain management & HEP, ski prep exercises. Modalities for pain management MH/IFES-[L/S and sacral region].
--- NOTE | 2023-07-22 07:59 | PT.OPDS ---
Current Diagnoses Radiculopathy, site unspecified (07/11/23) Visit Care Team Role Provider Type Charlie Arellano MD Family Provider Physician Primary Care Provider Specialty: Family Practice Obstetrics Address: [address] [place], [address] Email: [email or web address] Sherly Recinos MD Attending Provider Physician Referring Provider Specialty: Family Practice Address: [address] [place] [address], [facility], [place], [address] Email: [email or web address] Visit Number Visit Number Discharge Summary PT-OP-B Current Condition Start: 06/17/23 19:06 Freq: Status: Active Protocol: Document 06/30/23 13:23 LRN (Rec: 06/30/23 16:12 LRN [id number]) Current Condition History of Current Condition Onset Date 2 months ago Current Complaints R LBP, R sciatic pain History of Current Condition Mild LBP onset when holding 11 month old son (on L side), he twisted a weird and had pain down his R side. The back issue went away, but later had pain in lateral R knee to ankle. He states the R foot and back of calf feels a little numbish. The pt has 2 sons, ages 11 months and 5 yo. He states he doesn't have to lift the 5 year old. Prior Treatments and Tests occasional caregiver 2x/week. Gabapentin and Meloxicam Future Testing and Treatments Planned occasional caregiver 2x/week. Developmental History Developmental History 10 yrs ago, thinks bad posture caused onset of R LBP, went to get out of bed and feel to ground due to pain; once up was able to walk, but pain returned after sitting. Current onset, back issue went away, but later pain in Lateral R knee to ankle. R foot and back of calf feels a little numbish. Hurts to walk. Works for [employer], so walking flat or incline at work (not up/down stairs) is painful. Treatment Goals Patient/Caregiver Goals Pt goals: to get pain under control: Able to walk on flat and incline without pain, to prepare for skiing, agreeable to HEP. Personal Factors Other Personal Factors That May Effect Works for [employer] Therapy/Recovery requiring walking flat and inclined surfaces. Has 11 month, almost 12 month old son that he carries, mostly on the L side. PT-OP-C Subjective Start: 06/17/23 19:06 Freq: Status: Active Protocol: Document 07/11/23 10:54 SP (Rec: 07/11/23 11:43 SP [id number]) OP-PT Subjective Patient Comments Patient Comments Pt reports pain almost gone, has been able to stopped taking Gabapentin and Maloxincan. Compliant with HEP and wants to work back into gym ex, does attend [employer] with family but not wts yet. PT-OP-H Neuro Start: 06/17/23 19:06 Freq: Status: Active Protocol: Document 06/30/23 13:23 LRN (Rec: 06/30/23 16:12 LRN [id number]) Sensation Evaluation Gross Sensation Gross Sensation Right LE Impaired Sensation Description Numbness Dermatome Impairments L3,L4,L5,S1,S2 Deep Tendon Reflex & Clonus Assessment Deep Tendon Reflex Bilateral Achilles Deep Tendon Reflex 2+ Normal Right Patellar Deep Tendon Reflex 3+ Normal But Brisk Left Patellar Deep Tendon Reflex 2+ Normal PT-OP-J Posture/Palpation/Skin Start: 06/17/23 19:06 Freq: Status: Active Protocol: Document 06/30/23 13:23 LRN (Rec: 06/30/23 16:12 LRN [id number]) Posture Evaluation Position Standing Head/C-Spine Posture Side Bent Left,Forward Head L-Spine Posture Decreased Lordosis,Shifted Left Shoulder Posture (L) Elevated Pelvis Posture Posterior Tilted Weight Distribution Balanced Hip Posture (L) Externally Rotated Ankle/Foot Posture (L) Calcaneal Inversion,(R) Calcaneal Inversion Palpation Assessment Location R LE Palpation Location Lower leg posterior, lateral anterior; foot lateral and top . Palpation Details Decreased sensation Low back Palpation Location R low back Palpation Findings Soft Tissue Tightness, Tenderness Palpation Details Bilateral LB tightness PT-OP-K Range of Motion Start: 06/17/23 19:06 Freq: Status: Active Protocol: Document 06/30/23 13:23 LRN (Rec: 06/30/23 16:12 LRN [id number]) Lumbar Spine Range of Motion Lumbar Spine Active Degrees Testing Position Standing Flexion 45 Extension 20 Rotation Left 30 Rotation Right 30 Lateral Flexion Left 20 Lateral Flexion Right 15 Comments Trunk AROM: Flexion is 45 deg ?s with 30 deg?s hip flexion, Trunk extension is 20 deg?s with 20 deg?s hip extension. Hip Goniometric Range of Motion Hip Right Passive Testing Position Supine Straight Leg Raise 55 Internal Rotation 25 External Rotation 55 Left Passive Testing Position Supine Straight Leg Raise 65 Internal Rotation 20 External Rotation 55 PT-OP-L Special Tests Start: 06/17/23 19:06 Freq: Status: Active Protocol: Document 06/30/23 13:23 LRN (Rec: 06/30/23 16:12 LRN [id number]) Special Tests Lumbar Spine Special Tests Manual Traction Test Results negative Straight Leg Raise Test Results Possible + bilaterally Comments PSLR is 55 R, 65 L. Slump Test Results + right Vertical Spine Loading Test Results negative PT-OP-M Strength Start: 06/17/23 19:06 Freq: Status: Active Protocol: Document 06/30/23 13:23 LRN (Rec: 06/30/23 16:12 LRN [id number]) Trunk Strength Trunk Manual Muscle Testing Rotation Left 3+ Fair+ Rotation Right 3+ Fair+ Core Stabilization Lacks core rotational stability with hip flexion. Hip Strength Hip Manual Muscle Testing Right Flexion (L2) 4+ Good+ Abduction 3 Fair External Rotation 4 Good Internal Rotation 3 Fair Comments Strength is 5/5 except as indicated above Left Internal Rotation 4 Good Comments Strength is 5/5 except as indicated above PT-OP-T Assessment and Plan Start: 06/17/23 19:06 Freq: Status: Active Protocol: Document 07/22/23 07:54 LRN (Rec: 07/22/23 07:59 LRN [id number]) Physical Therapy Assessment Goals Three Impairment Decreased function per CE score of 8/50 Impairment CE score 16/100 = 16% impaired Halfway Goal (LTG) Decrease R LB/LE pain to 0/10 with pt able to walk on flat and incline w/o pain. 07/07/23: Pain rated 4-5/10 LTG Duration 8wks-08/26/23 progressing Two Impairment Pain rated 6/10 at worst Short Term Goal (STG) Decrease R LBP/RLE pain to 3/ 10 with walking. 06/06/23: Pain rated 5/10, ending treatment with pain 4/ 10. 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 LTG Duration 8wks-08/26/23 (07/22/23: Not assessed, early DC) One Impairment Lacks appropriate self care program Short Term Goal (STG) Pt will be educated in log roll transfers, proper body mechanics for ADLs, proper sitting/standing posture. 07/04/23: Discussed elevated posture, TA engagement hip hinge sit and stand for spinal alignment, added as HEP. 07/07/23: Educated pt in log roll transfers, proper body mechanics for ADLs, proper sitting/standing posture. STG Duration 4 wks-07/29/23 (07/07/23: MET GOAL) Halfway Goal (LTG) Pt will be independent in an effective self care HEP for core/hip strengthening and mobility ex's to manage his pain and prep for skiing. 07/04/23: TA HS, LE neural glide w/ ankle AP&IV, piriformis stretch, TA STS. Aware self STMs ball wall if needed (used foam roller in past). 07/11/23: progressing: added 1/ 2 knee chop, reviewed cable gym program UE/LEs and ET painfree. LTG Duration 8wks-08/26/23 (07/11/23: progressed) Assessment Summary Assessment Pt was seen for initial eval 06/30/23 and has been seen for 3 treatment visits. Msg received 07/21/23 that pt requested discharge from PT, no other reason given; therefore pt is being discharged from PT at pt request. Pt progress is noted above. Physical Therapy Plan Discharge Physical Therapy Discharge Reasons Patient Request Discharge Comments Thank you for your referral.
== END 2023-07-25 10:15 | disposition home or self-care (01) ==
LOC: PHYS 10:45
PROVIDERS: Family Provider Family Medicine; PCP Family Medicine; Referring Provider Family Medicine; Visit Provider Family Medicine
DX: M54.10 Radiculopathy, site unspecified (principal)
CPT/HCPCS: 97110; 97140; 97162; 97535